=== PATIENT | male | born 1965 | race Caucasian/White ===

== ENCOUNTER 2018-05-03 03:18 | Emergency (ER) | payer OTHER ==
[~2018-05-03] VITALS: Ht 175.3 cm; Wt 108.9 kg
[~2018-05-03 03:18] MED LIST: ASPIRIN81 M4 PO; BACTRIM DS TAB1 EACH PO; DICLOFENAC SODI75 M2 PO; KEFLEX500 M1 PO; LISINOPRIL40 M1 PO; METOPROLOL TART25 M1 PO; POLYTRIM EYE DR10 ML OPH; PRAVASTATIN SOD40 M2 PO; TRIAMCINOLONE A15 G1 TOP
--- NOTE | 2018-05-03 03:34 | ED GENERAL ADULT ---
See Addendum History of Present Illness General Chief Complaint: General Adult Stated Complaint: PT C/O SOB 02 SAT 96% Source: patient Exam Limitations: no limitations Vital Signs & Intake/Output Vital Signs & Intake/Output Vital Signs Date Time Temp Pulse Resp B/P B/P Pulse O2 O2 Flow FiO2 Mean Ox Delivery Rate 05/03 0645 98.4 81 18 146/72 97 Room Air 05/03 440 76 20 142/75 97 Room Air Room Air 05/03 334 97 Room Air Room Air 05/03 333 98.3 72 20 165/82 97 Room Air Room Air Allergies Coded Allergies: NO KNOWN ALLERGIES (03/04/16) Reconcile Medications Aspirin (Aspirin*) 81 MG TAB.CHEW 1 TAB PO DAILY HEART HEALTH (Reported) Diclofenac Sodium 75 MG TABLET.DR 1 TAB PO BID PRN PAIN Lisinopril 40 MG TABLET 1 TAB PO DAILY HEART (Reported) Metoprolol Tartrate 25 MG TABLET 1 TAB PO BID HEART (Reported) Polytrim (Polytrim Eye Drops) 10,000 UNIT-1 MG/ML DROPS 1 GTT OPH Q6 CORNEAL ABRASION Pravastatin Sodium 40 MG TABLET 1 TAB PO QPM CHOLESTEROL (Reported) Triage Nurses Notes Reviewed? yes HPI: 52-year-old male with extensive past medical history presents with acute onset chest heaviness. Denies chest pain. Symptoms started about 6 hours ago. Denies exertional dyspnea. Denies cough wheezing and chest pain. Past History Medical History Any Pertinent Medical History? see below for history Neurological: NONE EENT: NONE Cardiovascular: hypertension, hyperlipidemia, QUAD BIPASS Respiratory: NONE Gastrointestinal: NONE Hepatic: NONE Renal: NONE Musculoskeletal: CHRONIC BILATERAL SHOULDER PAIN Psychiatric: NONE Endocrine: NONE Blood Disorders: NONE Cancer(s): NONE PLUMBING SERVICE TECHNICIAN/Reproductive: NONE Surgical History Surgical History: CABG Psychosocial History Who do you live with Spouse Services at Home None What is your primary language [place] Family History Hx Contributory? No Review of Systems Review of Systems Constitutional: Reports: no symptoms, see HPI. EENTM: Reports: no symptoms. Respiratory: Reports: no symptoms. Cardiovascular: Reports: no symptoms. GI: Reports: no symptoms. Genitourinary: Reports: no symptoms. Musculoskeletal: Reports: no symptoms. Skin: Reports: no symptoms. Neurological/Psychological: Reports: no symptoms. Hematologic/Endocrine: Reports: no symptoms. Immunologic/Allergic: Reports: no symptoms. All Other Systems: Reviewed and Negative Physical Exam Physical Exam General Appearance: well developed/nourished, comfortable Comments: Gen.: Well-nourished, well-developed, no acute respiratory distress. Head: Normocephalic, atraumatic. Eyes: Normal inspection bilaterally Ears: Normal inspection bilaterally Nose: Normal inspection Throat/mouth : Moist mucosa Neck: Supple, full range of motion, no goiter Heart: Regular rate and rhythm, no murmurs rubs or gallops Lungs: Clear to auscultation bilaterally with normal air entry Chest: Nontender Back: Normal range of motion Abdomen: Soft, nontender, nondistended, normal bowel sounds Extremities: Normal range of motion grossly, equal radial pulses, no cyanosis clubbing or edema Neurologic: Cranial nerves grossly intact, speech is clear Skin: warm and dry, vertical scar in chest from prior CABG Psychiatric: Calm, cooperative, no apparent delusions or hallucinations Core Measures ACS in differential dx? Yes CVA/TIA Diagnosis: No Sepsis Present: No Sepsis Focused Exam Completed? No Progress Differential Diagnoses I considered the following diagnoses in my evaluation of the patient: I considered the following: Pericarditis- but the patient had no pericardial friction rub, no preceding viral illnesses and no EKG changes consistent with this. Acute coronary syndrome but the patient's EKG showed no acute changes, the troponin level was normal, the patient had a paucity of risk factors and the patient's clinical presentation wasn't consistent with this. Pneumothorax but the chest x-ray did not show this. Pneumonia but the chest x-ray did not show infiltrate. Pulmonary embolus but the patient had no resting tachycardia, was not hypoxic, had a paucity of risk factors and was PERC negative. Aortic aneurysm but the description of the patient's pain was inconsistent with this. The chest x-ray showed no widened mediastinum or other changes consistent with this. In addition the patient had a paucity of risk factors. Plan of Care: Orders Procedure Date/time Status TROPONIN LEVEL 05/03 640 Active EKG 05/03 640 Active TROPONIN LEVEL 05/03 339 Complete MAGNESIUM 05/03 339 Complete COMPREHENSIVE METABOLIC PANEL 05/03 339 Complete CBC WITHOUT DIFFERENTIAL 05/03 339 Complete EKG 05/03 032 Active Laboratory Tests 05/03/18 0644: Troponin I Pending 05/03/18 0342: Anion Gap 9, Estimated GFR > 60, BUN/Creatinine Ratio 24.3, Glucose 136 H, Calcium 9.6, Magnesium 2.1, Total Bilirubin 0.4, AST 24, ALT 44, Alkaline Phosphatase 60, Troponin I < 0.01, Total Protein 6.3, Albumin 4.0, Globulin 2.3, Albumin/Globulin Ratio 1.7, CBC w Diff NO MAN DIFF REQ, RBC 4.91, MCV 86.3, MCH 29.0, MCHC 33.6, RDW 14.3, MPV 8.2, Gran % 77.6 H, Lymphocytes % 17.8 L, Monocytes % 2.2, Eosinophils % 2.0, Basophils % 0.4, Absolute Granulocytes 6.0, Absolute Lymphocytes 1.4, Absolute Monocytes 0.2, Absolute Eosinophils 0.2, Absolute Basophils 0 Initial ED EKG: normal axis, normal intervals, normal p-waves, normal QRS complex, normal sinus rhythm, nonspecific ST T wave chg Prior EKG: unchanged Repeat EKG: unchanged Comments: Heart rate less than 100, O2 sat greater than 95 with no history of prior DVT or PE, negative for trauma, negative for leg swelling, malignancy, hemoptysis, or mobility. Low probability of PE. Patient states that he has been working overtime, just finished a shift and has a bit of a headache and is asking for something IV for headache. Toradol given. States that he feels better, negative chest pain throughout ED course. Departure Departure Disposition: HOME OR SELF CARE Condition: Stable Clinical Impression Primary Impression: Chest tightness Referrals: Airam Sullivan MD (PCP/Family) Departure Forms: Customer Survey General Discharge Information Comments Please note that there might be incidental findings in your evaluation that are unrelated to the current emergency department visit. Please notify your primary care doctor about this emergency department visit in order to obtain and review all of the testing performed so that these incidental findings can be monitored as needed. If you had an x-ray performed, please understand that some fractures may not be seen on the initial set of x-rays. If your symptoms persist you might need a repeat set of x-rays to check for such a fracture. If you had a laceration evaluated, please understand that foreign bodies such as glass or wood may not be visible to the naked eye or on plain x-rays. If the wound becomes red, swollen, increasingly more painful or if there is any drainage from the wound, please have it reevaluated by a physician for the possibility of a retained foreign body. If you're unable to follow up as outlined in the discharge instructions please return to the emergency department. Critical Care Note Critical Care Note Critical Care Time: non-applicable
[2018-05-03 03:56] LABS: ABSOLUTE BASOPHIL COUNT 0 /CUMM (0.0-0.2); ABSOLUTE EOSINOPHIL COUNT 0.2 /CUMM (0.0-0.7); ABSOLUTE LYMPH COUNT 1.4 /CUMM (1.2-3.4); ABSOLUTE MONOCYTE COUNT 0.2 /CUMM (0.10-0.60); BASOPHIL % 0.4 % (0.0-2.0); GRANULOCYTE % 77.6 % (42.2-75.2); HEMATOCRIT 42.4 % (42-52); MEAN CORPUSCULAR HGB CONC 33.6 G/DL (33.0-37.0); MEAN CORPUSCULAR VOLUME 86.3 FL (80.0-94.0); MEAN PLATELET VOLUME 8.2 FL (7.4-10.4); PLATELET COUNT 186 /CUMM (130-400); RBC DISTRIBUTION WIDTH 14.3 % (11.5-14.5); RED BLOOD CELL CT 4.91 /CUMM (4.70-6.10); WHITE BLOOD CELL COUNT 7.7 /CUMM (4.8-10.8)
--- NOTE | 2018-05-03 04:13 | RADIOLOGY REPORT ---
EXAMINATION: XR PORTABLE CHEST CLINICAL INFORMATION: Chest pain. Stress of breath. COMPARISON: None TECHNIQUE: Portable frontal view of the chest was obtained. 3:41 AM FINDINGS: Status post median sternotomy. The heart size is normal. The cardiac and mediastinal contours are normal. There is no acute change of the chest. There is no pulmonary vascular congestion. There is no infiltrate or pleural effusion. There is no pneumothorax. IMPRESSION: No acute abnormality of the chest.
[2018-05-03 08:44] VITALS: BP 128/85
== END 2018-05-03 08:45 ==
LOC: ERH 03:18
PROVIDERS: Emergency Medicine
DX: R07.89 Other chest pain (principal); I10 Essential (primary) hypertension; Z79.82 Long term (current) use of aspirin
CPT/HCPCS: 71045; 93005; 93010; 96374; J1885